=== PATIENT | male | born 1995 | race Caucasian/White ===

== ENCOUNTER 2019-08-19 17:02 | Emergency (ER) | payer OTHER ==
[~2019-08-19] VITALS: Ht 172.7 cm; Wt 65.8 kg
== END 2019-08-19 22:14 | disposition home or self-care (01) ==
LOC: ER 17:02 → CPU-OBS 19:11 → ER 22:14
DX: R07.89 Other chest pain (principal); T75.1XXA Unspecified effects of drowning and nonfatal submersion, initial encounter; Y21.9XXA Unspecified drowning and submersion, undetermined intent, initial encounter; Y93.11 Activity, swimming; Y92.832 Beach as the place of occurrence of the external cause; Y99.8 Other external cause status
CPT/HCPCS: G0378; G0379; 36600; 70450; 82805; 93005